=== PATIENT | female | born 1970 | race Caucasian/White ===

== ENCOUNTER 2016-07-06 08:39 | Day surgery (SDC) | payer OTHER ==
[2016-07-02 11:21] VITALS: BMI 21.3
--- NOTE | 2016-07-05 15:56 | HP ---
DATE OF ADMISSION: CHIEF COMPLAINT: Left shoulder pain and stiffness. 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 She does not recall any specific injury. It is bothering her with overhead use and at night. She has been taking Advil as needed. PAST MEDICAL HISTORY: Negative. PAST SURGICAL HISTORY: Negative. CURRENT MEDICATIONS: Ibuprofen. She denies drug allergies. FAMILY HISTORY: Significant for cancer. SOCIAL HISTORY: Significant for previous tobacco use; however, she quit in 2005. On examination, the patient is approximately 5 foot 6, 135 pounds of mesomorphic habitus. HEENT exam is nonfocal. Neck is supple. Active motion of the left shoulder, forward elevation 90 degrees, external rotation with arm at the side 10 degrees, internal rotation to the buttock. Passively I am able to forward elevate her to 90 degrees. Motor strength is 4+/5 for abduction and external rotation. Impingement and Neer test are positive. Her distal neurovascular exam otherwise appears be intact in the left upper extremity. MRI report from 06/25/2016 of the left shoulder shows rotator cuff is intact. IMPRESSION: Left shoulder adhesive capsulitis, symptomatic. RECOMMENDATIONS: I talked to the patient at length regarding her treatment options. At this point, she is quite limited because of stiffness and pain. She opted to proceed with manipulation under anesthesia with a subacromial cortisone injection. Risks and benefits are discussed at length in layman's terms. We will likely perform that as an outpatient procedure.
[~2016-07-06 08:39] MED LIST: CLINDAMYCIN 900 MG in DEXTROSE 5% IN WATER 50 ML IVPB ONE; LACTATED RINGERS 1,000 ML IV SCH
[2016-07-06 09:12] VITALS: TEMP 98.4
[2016-07-06] MEDS ORDERED: LIDOCAINE 1% 20 ML VIAL (10MG/ML) FOR IV START INTRADERMA ONE (09:25)
[2016-07-06] MEDS ORDERED: LIDOCAINE 1% 20 ML VIAL (10MG/ML) FOR IV START INTRADERMA PRN (09:26)
[2016-07-06] MEDS ORDERED: SCOPOLAMINE 1.5MG/72HR PATCH TRANSDERM ONE (09:26)
[2016-07-06] MEDS ORDERED: DEXAMETHASONE SOD PHOSPHATE 10 MG/ML 1 ML VIAL IV ONE (09:26)
[2016-07-06] MEDS ORDERED: ONDANSETRON 4 MG/2 ML VIAL IVP ONE (09:26)
[2016-07-06] MEDS ORDERED: LACTATED RINGERS 1,000 ML IV SCH (09:30)
[2016-07-06] MEDS ORDERED: KETOROLAC 30 MG/ML 1 ML VIAL ONE (10:31)
[2016-07-06] MEDS ORDERED: PROPOFOL 10 MG/ML 20 ML VIAL IV ONE (10:31)
[2016-07-06] MEDS: HYDROmorphone 1 MG/ML 1 ML SYRINGE IVP ONE ×4 (10:40→10:55)
[2016-07-06] MEDS: MIDAZOLAM 2 MG/2 ML VIAL IVP ONE ×2 (10:50→10:56)
--- NOTE | 2016-07-06 10:54 | P.OP ---
Date of Procedure: 07/06/16 Preoperative Diagnosis: Left shoulder adhesive capsulitis Postoperative Diagnosis: Same Procedure(s) Performed: Manipulation under anesthesia left shoulder with subacromial cortisone injection Anesthesia: MAC Surgeon: Yury Huber Estimated Blood Loss (ml): 0 Pathology: none sent Condition: stable Disposition: PACU Indications for Procedure: The patient's a 45-year-old female who presents with progressive left shoulder pain and stiffness secondary to adhesive capsulitis despite conservative measures. A discussion of the risks and benefits of manipulation under anesthesia along with a subacromial cortisone injection was made with patient. She opted to proceed. Specific risks of this procedure to include fracture, dislocation, tendon rupture, possible recurrence of stiffness and need for subsequent procedures was discussed. Informed consent was obtained. Operative Findings: Significant adhesions Description of Procedure: The patient was brought to the recovery room, and after induction of IV sedation I then gently manipulated her left shoulder. Initially with her arm at her side obtained 70 of external rotation after encountering moderate adhesions. I then obtained full forward elevation again encountering moderate adhesions. I felt that I had adequate release at this point. The posterior shoulder was then prepared with ChloraPrep. 80 mg of Depo-Medrol along with 5 mL of quarter percent plain Marcaine was injected the left shoulder posterior subacromial space. She was then monitored until fully awake. No complications were incurred. There was no blood loss.
[2016-07-06] MEDS ORDERED: HYDROcodone/APAP 5-325MG 1 EACH TAB PO ONE (11:44)
[2016-07-06 11:46] VITALS: RESP 16
[2016-07-06 12:37] VITALS: BP 110/69; PULSE 88
== END 2016-07-06 12:40 | disposition home or self-care (01) ==
LOC: OR 08:39
PROVIDERS: ATTEND Orthopaedic Surgery
DX: M75.02 Adhesive capsulitis of left shoulder (principal); Z87.891 Personal history of nicotine dependence; Z88.0 Allergy status to penicillin
CPT/HCPCS: 23700; 20610; J2250; J1100; J2405; J1885; J1170; J2704

== ENCOUNTER → 2016-08-20 | Outpatient (CLI) | payer OTHER ==
[2016-08-20 21:04] LABS: ALT 30 U/L (9-52); AST 23 U/L (14-36); Alkaline Phosphatase 73 U/L (38-126); Anion Gap 12 mmol/L; Blood Urea Nitrogen 13 mg/dL (7-17); Carbon Dioxide 29 mmol/L (22-30); Chloride 102 mmol/L (98-107); Cholesterol 129 mg/dL (<200); Glucose 77 mg/dL (74-99); HDL Cholesterol 86 mg/dL (40-60); Non-African American GFR(MDRD) >60 (>60 ml/min/1.73 sqM); Sodium 143 mmol/L (137-145); Total Bilirubin 0.6 mg/dL (0.2-1.3); Total Protein 7.5 g/dL (6.3-8.2); Triglycerides 35 mg/dL (<150)
[2016-08-20 21:05] LABS: Basophils % (A) 1 %; CH 32.1; Eosinophils % (A) 1 %; HCT 42.7 % (34.0-46.0); HDW 2.66; HGB 14.2 gm/dL (11.4-16.0); Luc # (Auto) 0.08; Luc % (Auto) 2; Lymphocytes # (A) 1.2 k/uL (1.0-4.8); Lymphocytes % (A) 32 %; MCH 31.4 pg (25.0-35.0); MCHC 33.2 g/dL (31.0-37.0); MCV 94.7 fL (80.0-100.0); Monocytes # (A) 0.3 k/uL (0-1.0); Monocytes % (A) 7 %; Neutrophils # (A) 2.2 k/uL (1.3-7.7); Neutrophils % (A) 58 %; RBC 4.51 m/uL (3.80-5.40); RDW 12.7 % (11.5-15.5); WBC 3.8 k/uL (3.8-10.6); WBC (Perox) 4.08
== END ==
LOC: MMGSC 09:51
PROVIDERS: ATTEND Family Medicine
DX: Z00.00 Encounter for general adult medical examination without abnormal findings (principal)
CPT/HCPCS: 36415; 80053; 80061; 84439; 84443; 85025

== ENCOUNTER → 2017-02-18 | Outpatient (CLI) | payer SELFPAY ==
--- NOTE | 2017-02-18 11:47 | ECHOF ---
Referral Reason:R07.89 chest pain MEASUREMENTS -------- HEIGHT: 167.6 cm WEIGHT: 58.5 kg BP: 119/69 RVIDd: 2.6 cm (< 3.3) IVSd: 0.9 cm (0.6 - 1.1) LVIDd: 3.5 cm (3.9 - 5.3) LVPWd: 1.0 cm (0.6 - 1.1) IVSs: 1.3 cm LVIDs: 2.8 cm LVPWs: 1.2 cm LAESV Index (A-L): 12.94 ml/m Ao Diam: 2.6 cm (2.0 - 3.7) AV Cusp: 2.1 cm (1.5 - 2.6) MV EXCURSION: 18.482 mm (> 18.000) MV EF SLOPE: 82 mm/s (70 - 150) EPSS: 0.7 cm MV E Luis: 0.82 m/s MV DecT: 191 ms MV A Luis: 0.65 m/s MV E/A Ratio: 1.27 FINDINGS -------- Sinus rhythm. This was a technically good study. The left ventricular size is normal. Left ventricular wall thickness is normal. Overall left ventricular systolic function is normal with, an EF between 55 - 60 %. The right ventricle is normal in size. Normal LA size by volume 22+/-6 ml/m2. The right atrium is normal in size. The aortic valve is trileaflet and appears structurally normal. There is trace mitral regurgitation. The tricuspid valve appears structurally normal. Trace/mild (physiologic) pulmonic regurgitation. The aortic root size is normal. Normal inferior vena cava with normal inspiratory collapse consistent with estimated right atrial pressure of 5 mmHg. There is no pericardial effusion. CONCLUSIONS -------- 1. Sinus rhythm. 2. There is trace mitral regurgitation. 3. The tricuspid valve appears structurally normal. 4. Trace/mild (physiologic) pulmonic regurgitation. 5. The aortic root size is normal. 6. Normal inferior vena cava with normal inspiratory collapse consistent with estimated right atrial pressure of 5 mmHg. 7. There is no pericardial effusion. 8. This was a technically good study. 9. The left ventricular size is normal. 10. Left ventricular wall thickness is normal. 11. Overall left ventricular systolic function is normal with, an EF between 55 - 60 %. 12. The right ventricle is normal in size. 13. Normal LA size by volume 22+/-6 ml/m2. 14. The right atrium is normal in size. 15. The aortic valve is trileaflet and appears structurally normal. EMBOSSER OPERATOR: Jocelyn Lopez RDCS
--- NOTE | 2017-02-18 13:46 | EST ---
EXERCISE STRESS DATE OF SERVICE: 02/18/2017 AGE: 46 SEX: Female HT: 66 WT: 129 PROTOCOL: Jose STAGE: III DURATION OF EXERCISE: 8 minutes HEART RATE REST: 90 BLOOD PRESSURE REST: 129/73 MAXIMUM HEART RATE ACHIEVED: 168 MAXIMUM BLOOD PRESSURE: 134/65 85% MPHR: 149 100% MPHR: 175 METS: 9.7 INDICATIONS: Chest pain. Baseline EKG revealed normal sinus rhythm without significant ST-T changes. Patient walked on standard Jose protocol for 8 minutes, achieved a maximum heart rate of 168 beats per minute, well above 85% of predicted maximal. She developed fatigue and shortness of breath, but did not have any angina or arrhythmia. EKG did not reveal any ST-segment changes to indicate ischemia. FINAL IMPRESSION: Fair exercise capacity with a negative stress test by EKG criteria. MMODL / IJN: [id number] /
== END | disposition home or self-care (01) ==
LOC: RADECHMAIN 08:18
PROVIDERS: ATTEND Family Medicine
DX: I34.0 Nonrheumatic mitral (valve) insufficiency (principal); R07.89 Other chest pain
CPT/HCPCS: 93017; 93306

== ENCOUNTER → 2018-01-20 | Outpatient (CLI) | payer MEDICAID ==
--- NOTE | 2018-01-20 13:52 | US ---
EXAMINATION TYPE: US kidneys/renal and bladder DATE OF EXAM: 01/20/2018 COMPARISON: NONE CLINICAL HISTORY: R31.9 HEMATURIA; Patient stated microscopic hematuria EXAM MEASUREMENTS: Right Kidney: 10.3 x 5.2 x 4.3 cm Left Kidney: 10.8 x 5.4 x 5.8 cm Post Void Residual Volume: 2.8 mL Incidental finding is noted of single, shadowing gallstone in gallbladder. Right Kidney: prominent renal pelvis noted post void at 1.1cm A/P however there is no evidence of hyd ronephrosis. Left Kidney: No hydronephrosis or masses seen Bladder: wnl Bilateral Jets seen: Yes Normal Post Void Residual: Yes No nephrolithiasis is seen. The urinary bladder is anechoic. Bilateral ureteral jets are seen. IMPRESSION: 1. No hydronephrosis or nephrolithiasis bilaterally. 2. Incidentally noted cholelithiasis.
== END | disposition home or self-care (01) ==
LOC: RADUSWWP 12:41
PROVIDERS: ATTEND Family Medicine
DX: K80.20 Calculus of gallbladder without cholecystitis without obstruction (principal)
CPT/HCPCS: 76770

== ENCOUNTER → 2018-03-06 | Outpatient (CLI) | payer MEDICAID ==
--- NOTE | 2018-03-08 11:11 | MM ---
Reason for exam: screening (asymptomatic). Last mammogram was performed 1 year and 6 months ago. History: Patient is postmenopausal and has history of other cancer at age 26. Cyst aspiration of the left breast. Physical Findings: A clinical breast exam by your physician is recommended on an annual basis and results should be correlated with mammographic findings. MG 3D Screening Mammo W/Cad Bilateral CC and MLO view(s) were taken. Prior study comparison: August 30, 2016, mammogram, performed at [facility]. October 02, 2013, mammogram, performed at [facility]. The breast tissue is heterogeneously dense. This may lower the sensitivity of mammography. No significant changes when compared with prior studies. ASSESSMENT: Negative, BI-RAD 1 RECOMMENDATION: Routine screening mammogram of both breasts in 1 year.
== END | disposition home or self-care (01) ==
LOC: RADMAMWWP 16:43
PROVIDERS: ATTEND Family Medicine
DX: Z12.31 Encounter for screening mammogram for malignant neoplasm of breast (principal)
CPT/HCPCS: 77063; 77067

== ENCOUNTER → 2021-06-11 | Outpatient (CLI) | payer MEDICAID ==
--- NOTE | 2021-06-11 14:09 | MM ---
Reason for exam: screening (asymptomatic). Last mammogram was performed 3 years and 3 months ago. History: Patient is postmenopausal and has history of other cancer at age 26. Cyst aspiration of the left breast. Physical Findings: A clinical breast exam by your physician is recommended on an annual basis and results should be correlated with mammographic findings. MG 3D Screening Mammo W/Cad Bilateral CC and MLO view(s) were taken. Prior study comparison: March 06, 2018, bilateral MG 3d screening mammo w/cad. August 30, 2016, mammogram, performed at [facility]. The breast tissue is heterogeneously dense. This may lower the sensitivity of mammography. There are benign appearing dystrophic calcifications bilaterally. There is chronic nodularity in the left breast at focal calcification centrally. There is no discrete abnormality. ASSESSMENT: Benign, BI-RAD 2 RECOMMENDATION: Routine screening mammogram of both breasts in 1 year.
== END | disposition home or self-care (01) ==
LOC: RADMAMWWP 07:17
PROVIDERS: ATTEND Family Medicine
DX: Z12.31 Encounter for screening mammogram for malignant neoplasm of breast (principal); Z78.0 Asymptomatic menopausal state
CPT/HCPCS: 77063; 77067

== ENCOUNTER 2021-11-13 08:33 | Day surgery (SDC) | payer MEDICAID ==
[2021-11-12 10:38] VITALS: BMI 21.6
[~2021-11-13 08:33] MED LIST changes: -CLINDAMYCIN 900 MG in DEXTROSE 5% IN WATER 50 ML IVPB ONE; +LIDOCAINE 1% (10MG/ML) FOR IV START INTRADERMA PRN
[2021-11-13 08:49] VITALS: RESP 16; TEMP 97.4
[2021-11-13] MEDS: LACTATED RINGERS 1,000 ML IV ONE ×2 (08:59→09:25)
[2021-11-13] MEDS ORDERED: LACTATED RINGERS 1,000 ML IV ONE (08:59)
[2021-11-13] MEDS ORDERED: LIDOCAINE 2% INJ 20 MG/ML (2 ML VIAL) ONE (09:24)
[2021-11-13] MEDS ORDERED: PROPOFOL 10 MG/ML 20 ML VIAL IV ONE (09:24)
--- NOTE | 2021-11-13 09:50 | P.PCN ---
Date of Procedure: 11/13/21 Procedure(s) Performed: BRIEF HISTORY: Patient is a 51-year-old pleasant white female scheduled for an elective colonoscopy as a part of screening for colorectal neoplasia. PROCEDURE PERFORMED: Colonoscopy with snare polypectomy. PREOPERATIVE DIAGNOSIS: screening for colon cancer. IV sedation per Anesthesia. PROCEDURE: After informed consent was obtained, the patient, was brought into the endoscopy unit. IV sedation was administered by Anesthesia under continuous monitoring. Digital rectal examination was normal. Initially the Olympus CF-160 flexible video colonoscope was then inserted in the rectum, gradually advanced into the cecum without any difficulty. Careful examination was performed as the scope was gradually being withdrawn. Ileocecal valve and the appendiceal orifice were visualized and appeared normal. Prep was poor and several areas of the colon. Mucosa of the cecum, ascending colon, transverse colon appeared normal. In the descending colon there was a 5 mm polyp that was removed by snare polypectomy. Rest of the , descending colon, sigmoid colon, and rectum appeared normal. Retroflexion was performed in the rectum and no lesions were seen. The patient tolerated the procedure well. IMPRESSION: 5 mm descending colon polyp status post polypectomy Poor prep in several areas of the colon precluding adequate visualization RECOMMENDATIONS: Findings of this examination were discussed with the patient as well as a family. She was advised to have a repeat colonoscopy in 5 years from now.
[2021-11-13 10:17] VITALS: BP 140/68; PULSE 86
== END 2021-11-13 10:45 | disposition home or self-care (01) ==
LOC: ORWHC2ENDO 08:33
PROVIDERS: ATTEND Internal Medicine Gastroenterology
DX: Z12.11 Encounter for screening for malignant neoplasm of colon (principal); D12.4 Benign neoplasm of descending colon; Z87.891 Personal history of nicotine dependence; Z79.899 Other long term (current) drug therapy; Z88.0 Allergy status to penicillin; Z97.2 Presence of dental prosthetic device (complete) (partial)
CPT/HCPCS: 88305; 45385; J2704; J2001

== ENCOUNTER → 2022-10-20 | Outpatient (CLI) | payer MEDICAID ==
--- NOTE | 2022-10-20 08:54 | USB ---
Reason for Exam: Clinical finding. Patient History: Menarche at age 14. First Full-Term at age 18. Hysterectomy at age 26. Postmenopausal. Cyst Aspiration on the Left side. Risk Values: Maeve 5 year model risk: 0.7%. NCI Lifetime model risk: 6.4%. Technique: Method: Whole Breast Handheld. Prior Study Comparison: 08/30/2016 Screening Mammogram, [facility]. 03/06/2018 Bilateral Screening Mammogram, [facility]. 06/11/2021 Bilateral Screening Mammogram, [facility]. Findings: The whole breast of the right breast, the axilla of the right breast and the retroareolar of the right breast were scanned. Imaged: Ultrasound imaging of: All 4 quadrants, the retroareolar region and axilla. * Ultrasound imaging and area of palpable abnormality demonstrates cystic structure with internal solid component measuring 15 x 8 x 14 mm. This is located at 7:00 approximately 1 cm from the nipple. * Additional irregular shaped mixed echogenicity lesion at 10:00 3 cm from the nipple nipple measuring 7 x 7 x 4 mm. Overall Assessment: Suspicious, BI-RAD 4 Management: Ultrasound Core Biopsy of the right breast. Ultrasound-guided biopsies of both the 10:00 and 7:00 lesions. A clinical breast exam by your physician is recommended on an annual basis and results should be correlated with mammographic findings. This exam should not preclude additional follow-up of suspicious palpable abnormalities. Results were given to the patient verbally at the time of exam. Electronically signed and approved by: Paul Maxwell DO
--- NOTE | 2022-10-20 08:55 | MM ---
Reason for Exam: Clinical finding. Last mammogram was performed 1 year(s) and 4 month(s) ago. Indicated Problems: Palpable abnormality of the right side for 3 Week(s). Patient History: Menarche at age 14. First Full-Term at age 18. Hysterectomy at age 26. Postmenopausal. Cyst Aspiration on the Left side. Risk Values: Maeve 5 year model risk: 0.7%. NCI Lifetime model risk: 6.4%. Prior Study Comparison: 10/02/2013 Screening Mammogram, [facility]. 08/30/2016 Screening Mammogram, [facility]. 03/06/2018 Bilateral Screening Mammogram, [facility]. 06/11/2021 Bilateral Screening Mammogram, [facility]. Tissue Density: The breast tissue is heterogeneously dense. This may lower the sensitivity of mammography. Findings: Analyzed By CAD. * Palpable marker correlates with lesion measuring 13 x 12 mm approximately 3.0 cm from the nipple on right CC view on MLO view/well appreciated but may be slightly inferior up to 1.0 cm from the nipple. * Left breast does not demonstrate cyst mass or calcification. There is benign-appearing calcification in the left breast. Overall Assessment: Incomplete: need additional imaging evaluation, BI-RAD 0 Management: Diagnostic Breast Ultrasound of the right breast. Results were given to the patient verbally at the time of exam. Patient should continue monthly self-breast exams. A clinical breast exam by your physician is recommended on an annual basis. This exam should not preclude additional follow-up of suspicious palpable abnormalities. Note on Maeve scores and lifetime risk: 1. A Maeve score greater than 3% is considered moderate risk. If this is the case, consider specialist referral to assess eligibility for a risk reducing agent. 2. If overall lifetime risk for the development of breast cancer is 20% or higher, the patient may qualify for future screening with alternating mammogram and breast MRI. Electronically signed and approved by: Paul Maxwell DO
== END | disposition home or self-care (01) ==
LOC: RADMAMWWP 07:05
PROVIDERS: ATTEND Family Medicine
DX: N63.10 Unspecified lump in the right breast, unspecified quadrant (principal); Z78.0 Asymptomatic menopausal state
CPT/HCPCS: 77062; 77066

== ENCOUNTER → 2022-11-03 | Day surgery (SDC) | payer MEDICAID ==
--- NOTE | 2022-11-08 12:08 | MM ---
Reason for Exam: Post Procedure Mammogram. Last screening mammogram was performed less than 1 month ago. Patient History: Menarche at age 14. First Full-Term at age 18. Hysterectomy at age 26. Postmenopausal. Cyst Aspiration on the Left side. Risk Values: Maeve 5 year model risk: 0.7%. NCI Lifetime model risk: 6.4%. Prior Study Comparison: 03/06/2018 Bilateral Screening Mammogram, [facility]. 06/11/2021 Bilateral Screening Mammogram, [facility]. 10/20/2022 Bilateral MG 3D diag mammo w/cad [place], [facility]. Tissue Density: Right: The breast tissue is heterogeneously dense. This may lower the sensitivity of mammography. Pathology Description: Location: 7 o'clock, lower outer quadrant, anterior. Marker Left Behind. Needle Type: Mammotome Cores: 8 Gauge: 13 The procedure of ultrasound guided core biopsy was explained to the patient. Benefits, alternatives, and risks were discussed. An informed consent was then obtained. Initial scanning redemonstrates a 1.5 cm cystic lesion at the 7:00 palpable site. Mural based echogenicity could represent clumps of debris. This is targeted for aspiration and biopsy. Additional scanning at the 10:00 position was unable to reproduce any discrete abnormality. The patient was placed in supine positioning for imaging and for the procedure. The overlying skin was prepped and draped in usual sterile fashion. Lidocaine was used as anesthetic into the skin and subcutaneous tissue up to area of concern in the right breast. Under ultrasound guidance, initial attempt at aspiration with an 18-gauge spinal needle was unsuccessful. Under ultrasound guidance, a 13-gauge vacuum-assisted mammotome biopsy gun was advanced through the lesion. The lesion collapsed. A total of 8 core specimens were obtained of the residual cystic lesion and surrounding tissue. Following this, a HydroMark coil clip was left at the site of biopsy. The patient tolerated the procedure well without any immediate complication. The patient was kept in the radiology department for short stay after the procedure and then discharged home in stable condition. Postprocedure mammogram: The patient was transferred to mammography for physician ordered post procedure mammogram for clip placement verification. Post procedure mammogram shows the clip at the 6:00 position previously palpable site. IMPRESSION: Successful, uncomplicated ultrasound guided core biopsy of the palpable cyst at the 6:00 right breast after initial unsuccessful attempt at aspiration. Probably due to very thickened internal debris. Full pathology results to follow. Pathology Results: Result: Benign, Fibroadenomatoid hyperplasia. BREAST TISSUE, RIGHT AT SEVEN O'CLOCK POSITION, CORE BIOPSY: Fibroadenomatoid stromal hyperplasia with fibrocystic change having apocrine metaplasia and focal usual ductal hyperplasia (see comment). Current specimen negative for diagnostic in situ or invasive carcinoma. Notes It is noted there is imaging evidence of a cystic structure measuring 15 mm located at approximately the seven o'clock position within the right breast. Clinical correlation with imaging studies is suggested, as indicated. Overall Assessment: Benign Assessment: MG diagnostic mammo RT wo CAD - Right: Benign, BI-RAD 2. Management: Diagnostic Breast Ultrasound of the right breast in 6 months. Electronically signed and approved by: Piper Perez M.D. Radiologist
== END ==
LOC: RADUSWWP 09:49
PROVIDERS: ATTEND Surgery
DX: N62 Hypertrophy of breast (principal); N60.81 Other benign mammary dysplasias of right breast
CPT/HCPCS: 88305; 77065; 19083; 19084; A4648

== ENCOUNTER → 2022-11-12 | Outpatient (CLI) | payer MEDICAID ==
[2022-11-12 11:09] VITALS: BP 125/71; PULSE 82; RESP 18; TEMP 98.1
--- NOTE | 2022-11-12 11:26 | P.GSHP ---
History of Present Illness H&P Date: 11/12/22 Chief Complaint: fibrocystic breast changes Meka is a 52 year old whtie female seen in consultation for Dr. Gonzalez Cleary regarding a biopsy of the right breast. She had a bilateral mammogram on 10-20-22. This led to a right breast ultrasound. This showed two areas in the right breast, one at a palpable spot at 7 oclock and one at 10:00. Ultrasound biopsy recommended for both. An attempt at ultrasound biopsy of both was done on 11-03-22. The lesion at 7 was smapled the lesion at 10 could not be reproduced. 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 Following the aspiration the patient continues to feel a palpable area which is believed to be related to the biopsy itself. It is black and blue. It is painful but is getting better. Axillary 10 years ago she had an aspiration on the left side which was benign. She has not had any surgery on either breast. She gets her mammograms annually. She is not complaining of any trauma or infection in the breast. Patient has a personal history of cervical cancer at age 26, she was treated with hysterectomy. Caffeine: 1 1/2 pots of coffee/day nicotine: none chocolate: occasional BCP: 2 months in her to's hormones: estrovan over the counter 5 days ago Family History: mother: lung cancer smoker patient cervical cancer at 26 Hormonal History: menarche: 14 M2, breast fed: no, age at first 18 menopause: hysterectomy at 26, left ovaries Surgical History: Hysterectomy Medical history: Negative Social history: Nicotine: Negative Alcohol: Occasional Drugs: Negative ] - Constitutional Constitutional: Reports sweats - EENT Eyes: denies blurred vision, denies pain Ears: deny: decreased hearing, tinnitus Ears, nose, mouth and throat: Denies headache, Denies sore throat - Breasts Breasts: bilateral: as per HPI - Cardiovascular Cardiovascular: Denies chest pain, Denies shortness of breath - Respiratory Comment: asthma Respiratory: Denies cough, Denies 7 - Gastrointestinal Gastrointestinal: Denies abdominal pain, Denies diarrhea, Denies nausea, Denies vomiting - Genitourinary (Female) Genitourinary: Denies dysuria, Denies hematuria - Menstruation Menstruation: Reports post hysterectomy - Musculoskeletal Musculoskeletal: Denies myalgias - Integumentary Integumentary: Denies pruritus, Denies rash - Neurological Neurological: Denies numbness, Denies weakness - Psychiatric Psychiatric: Denies anxiety, Denies depression - Endocrine Endocrine: Denies fatigue, Denies weight change - Hematologic/Lymphatic Comment: none - Allergic/Immunologic Allergic/Immunologic: Reports as per HPI Past Medical History Past Medical History: Asthma, Cancer Additional Past Medical History / Comment(s): Cervical cancer, gallstone, History of Any Multi-Drug Resistant Organisms: None Reported Past Surgical History: Hysterectomy Past Anesthesia/Blood Transfusion Reactions: Motion Sickness Past Psychological History: No Psychological Hx Reported Smoking Status: Former smoker Past Alcohol Use History: Rare Additional Past Alcohol Use History / Comment(s): Smoked 1 PPD for 15 yrs, quit 20 yrs ago. Past Drug Use History: None Reported - Past Family History Mother Family Medical History: Cancer Additional Family Medical History / Comment(s): lung Medications and Allergies Home Medications Medication Instructions Recorded Confirmed Type Montelukast Sodium [Singulair] 10 mg PO HS 11/12/21 11/12/22 History Mv-Mn/FA/Bl Coh/Isoflav/Jujube 1 tablet PO DAILY 11/12/22 11/12/22 History [Estroven Menopause Caplet] Allergies Allergy/AdvReac Type Severity Reaction Status Date / Time Penicillins Allergy Unknown Verified 11/12/22 10:56 Childhood Surgical - Exam Vital Signs Temp Pulse Resp BP Pulse Ox 98.1 F 82 18 125/71 98 11/12/22 11:06 11/12/22 11:06 11/12/22 11:06 11/12/22 11:06 11/12/22 11:06 - General no distress - Eyes normal ocular movement - ENT no hearing loss - Neck trachea midline - Respiratory normal respiratory effort, clear to auscultation - Cardiovascular Rhythm: regular Heart Sounds: normal: S1, S2 - Abdomen Abdomen: soft, non tender, no guarding, no rigid, no rebound - Integumentary normal turgor - Neurologic no disoriented, no combative - Musculoskeletal normal gait, normal posture - Psychiatric oriented to time, oriented to person, oriented to place, speech is normal, memory intact Breast Exam: BRA: 34B Inspection: bilateral grade 2 ptosis Palpation: right breast: Ecchymosis related to recent core biopsy, hematoma at the biopsy site, no other masses or nodules of concern on multi-positional exam Right axilla: No adenopathy of concern Left breast: Multiple positional exam no dominant masses or nodules of concern, fibrocystic changes Left axilla: No adenopathy of concern Results Mammogram and ultrasound personally reviewed Assessment and Plan Assessment: Impression: Fibrocystic breast changes Ecchymosis and hematoma after recent right breast ultrasound core biopsy 10:00 lesion in the right breast not seen for for biopsy, lesion that was biop sied was at 7:00 Prior palpable change is at the area of the now present hematoma Plan: Right breast ultrasound in 6 months with physician exam at that time Patient to follow up sooner any questions or concerns CC: Dr. Noel
== END ==
LOC: WWCWWP 10:47
PROVIDERS: ATTEND Surgery
DX: N60.11 Diffuse cystic mastopathy of right breast (principal); J45.909 Unspecified asthma, uncomplicated; Z80.1 Family history of malignant neoplasm of trachea, bronchus and lung; Z85.41 Personal history of malignant neoplasm of cervix uteri; Z87.891 Personal history of nicotine dependence; Z88.0 Allergy status to penicillin; Z90.710 Acquired absence of both cervix and uterus

== ENCOUNTER → 2023-06-15 | Outpatient (CLI) | payer MEDICAID ==
--- NOTE | 2023-06-15 15:35 | USB ---
Reason for Exam: Follow-up at short interval from prior study. Patient History: Menarche at age 14. First Full-Term at age 18. Hysterectomy at age 26. Postmenopausal. Previous Hyperplasia w/o Atypia at age 52. 11/03/2022, Benign US biopsy breast VAD RT on the right side. Cyst Aspiration on the Left side. Risk Values: Maeve 5 year model risk: 0.9%. NCI Lifetime model risk: 7.5%. Technique: Method: Targeted. Prior Study Comparison: 06/11/2021 Bilateral Screening Mammogram, [facility]. 10/20/2022 Bilateral MG 3D diag mammo w/cad [facility], [facility]. 11/03/2022 Right MG diagnostic mammo RT wo CAD, [facility]. Findings: The lateral section of the breast of the right breast was scanned. There is a clip within a small 0.8 x 0.4 cm density 1 cm from the nipple 7:00 position. This is smaller than the comparison.. Overall Assessment: Benign, BI-RAD 2 Management: Screening Mammogram of both breasts in 4 months. A clinical breast exam by your physician is recommended on an annual basis and results should be correlated with mammographic findings. This exam should not preclude additional follow-up of suspicious palpable abnormalities. Results were given to the patient verbally at the time of exam. Electronically signed and approved by: Andrez Thompson D.O. Radiologis
== END | disposition home or self-care (01) ==
LOC: RADUSWWP 14:53
PROVIDERS: ATTEND Surgery
DX: R92.8 Other abnormal and inconclusive findings on diagnostic imaging of breast (principal); Z78.0 Asymptomatic menopausal state

== ENCOUNTER → 2023-06-23 | Outpatient (CLI) | payer MEDICAID ==
[2023-06-23 10:31] VITALS: BP 118/74; PULSE 79; RESP 18; TEMP 98
--- NOTE | 2023-06-23 11:02 | P.PN ---
Subjective Progress Note Date: 06/23/23 Principal diagnosis: fibrocystic breast changes fibrocystic breast changes Meka is a 52 year old white female seen in consultation for Dr. Gonzalez Cleary regarding a biopsy of the right breast. She had a bilateral mammogram on 10-20-22. This led to a right breast ultrasound. This showed two areas in the right breast, one at a palpable spot at 7 oclock and one at 10:00. Ultrasound biopsy recommended for both. An attempt at ultrasound biopsy of both was done on 11-03-22. The lesion at 7 was sampled the lesion at 10 could not be reproduced. 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 About 10 years ago she had an aspiration on the left side which was benign. She has not had any surgery on either breast. She gets her mammograms annually. She is not complaining of any trauma or infection in the breast. ultrasound repeated of the right breast on 06-15-23 BIRAD 2 She does not complain of any new lumps masses or nodules of concern in either breast. She has had a 15 pound weight loss intentional and noticed some changes in her breast related to this. Patient has a personal history of cervical cancer at age 26, she was treated with hysterectomy. Caffeine: 1 1/2 pots of coffee/day nicotine: none chocolate: occasional BCP: 2 months in her to's hormones: estrovan over the counter 5 days ago Family History: mother: lung cancer smoker patient cervical cancer at 26 Hormonal History: menarche: 14 M2, breast fed: no, age at first 18 menopause: hysterectomy at 26, left ovaries Surgical History: Hysterectomy Medical history: Negative Social history: Nicotine: Negative Alcohol: Occasional Drugs: Negative ] - Constitutional Constitutional: Reports sweats - EENT Eyes: denies blurred vision, denies pain Ears: deny: decreased hearing, tinnitus Ears, nose, mouth and throat: Denies headache, Denies sore throat - Breasts Breasts: bilateral: as per HPI - Cardiovascular Cardiovascular: Denies chest pain, Denies shortness of breath - Respiratory Comment: asthma Respiratory: Denies cough - Gastrointestinal Gastrointestinal: Denies abdominal pain, Denies diarrhea, Denies nausea, Denies vomiting - Genitourinary (Female) Genitourinary: Denies dysuria, Denies hematuria - Menstruation Menstruation: Reports post hysterectomy - Musculoskeletal Musculoskeletal: Denies myalgias - Integumentary Integumentary: Denies pruritus, Denies rash - Neurological Neurological: Denies numbness, Denies weakness - Psychiatric Psychiatric: Denies anxiety, Denies depression - Endocrine Endocrine: Denies fatigue, Denies weight change - Hematologic/Lymphatic Comment: none - Allergic/Immunologic Allergic/Immunologic: Reports as per HPI Past Medical History Past Medical History: Asthma, Cancer Additional Past Medical History / Comment(s): Cervical cancer, gallstone, History of Any Multi-Drug Resistant Organisms: None Reported Past Surgical History: Hysterectomy Past Anesthesia/Blood Transfusion Reactions: Motion Sickness Past Psychological History: No Psychological Hx Reported Smoking Status: Former smoker Past Alcohol Use History: Rare Additional Past Alcohol Use History / Comment(s): Smoked 1 PPD for 15 yrs, quit 20 yrs ago. Past Drug Use History: None Reported - Past Family History Mother Family Medical History: Cancer Additional Family Medical History / Comment(s): lung Medications and Allergies Home Medications Medication Instructions Recorded Confirmed Type Montelukast Sodium [Singulair] 10 mg PO HS 11/12/21 11/12/22 History Mv-Mn/FA/Bl Coh/Isoflav/Jujube 1 tablet PO DAILY 11/12/22 11/12/22 History [Estroven Menopause Caplet] Allergies Allergy/AdvReac Type Severity Reaction Status Date / Time Penicillins Allergy Unknown Verified 11/12/22 10:56 Childhood Objective - Vital Signs Vital signs: Vital Signs Temp 98 F 06/23/23 10:20 Pulse 79 06/23/23 10:20 Resp 18 06/23/23 10:20 BP 118/74 06/23/23 10:20 Pulse Ox 97 06/23/23 10:20 FiO2 Intake & Output 06/22/23 06/23/23 06/23/23 18:59 06:59 18:59 Weight 56.699 kg - Constitutional General appearance: Present: cooperative - EENT Eyes: Present: EOMI ENT: Present: hearing grossly normal - Neck Neck: Present: normal ROM - Respiratory Respiratory: bilateral: CTA - Cardiovascular Heart sounds: normal: S1, S2 - Integumentary Integumentary: Present: normal turgor - Psychiatric Psychiatric: Present: A&O x's 3, appropriate affect, intact judgment & insight - Additional findings Additional findings: Breast Exam: BRA: 34B Inspection: bilateral grade 2 ptosis Palpation: right breast: no dominate masses or nodules of concern Right axilla: No adenopathy of concern Left breast: Multiple positional exam no dominant masses or nodules of concern, fibrocystic changes Left axilla: No adenopathy of concern Assessment and Plan Assessment: Impression: Fibrocystic breast changes 10:00 lesion in the right breast not seen for for biopsy, lesion that was biopsied was at 7:00 ultrsaound 1-10-24 BIRAD 2 repeat bilateral mammogram in 4 months Plan: bilateral mammogram in 4 months with exam at that time CC: Dr. Noel
== END ==
LOC: WWCWWP 10:06
PROVIDERS: ATTEND Surgery
DX: N60.11 Diffuse cystic mastopathy of right breast (principal); C80.1 Malignant (primary) neoplasm, unspecified; J45.909 Unspecified asthma, uncomplicated; Z88.0 Allergy status to penicillin; Z90.710 Acquired absence of both cervix and uterus; Z87.891 Personal history of nicotine dependence; Z85.41 Personal history of malignant neoplasm of cervix uteri

== ENCOUNTER → 2023-10-24 | Outpatient (CLI) | payer MEDICAID ==
--- NOTE | 2023-10-28 09:32 | MM ---
Reason for Exam: Screening (asymptomatic). Last screening mammogram was performed 12 month(s) ago. Patient History: Menarche at age 14. First Full-Term at age 18. Hysterectomy at age 26. Postmenopausal. Previous Hyperplasia w/o Atypia at age 52. 11/03/2022, Benign US biopsy breast VAD RT on the right side. Cyst Aspiration on the Left side. Risk Values: Maeve 5 year model risk: 0.9%. NCI Lifetime model risk: 7.4%. Prior Study Comparison: 06/11/2021 Bilateral Screening Mammogram, [facility]. 10/20/2022 Bilateral MG 3D diag mammo w/cad [facility], [facility]. 11/03/2022 Right MG diagnostic mammo RT wo CAD, [facility]. Tissue Density: The breasts are heterogeneously dense, which may obscure small masses. Findings: Analyzed By CAD. Right breast: There is no suspicious group of microcalcifications or new suspicious mass. Left breast: There is no suspicious group of microcalcifications or new suspicious mass. Overall Assessment: Negative, BI-RAD 1 Management: Screening Mammogram of both breasts in [address] [facility] will attempt to contact patient to return for supplemental views and ultrasound if indicated. Patient should continue monthly self-breast exams. A clinical breast exam by your physician is recommended on an annual basis. This exam should not preclude additional follow-up of suspicious palpable abnormalities. Note on Maeve scores and lifetime risk: 1. A Maeve score greater than 3% is considered moderate risk. If this is the case, consider specialist referral to assess eligibility for a risk reducing agent. 2. If overall lifetime risk for the development of breast cancer is 20% or higher, the patient may qualify for future screening with alternating mammogram and breast MRI. Electronically signed and approved by: Paul Maxwell DO
== END | disposition home or self-care (01) ==
LOC: RADMAMWWP 08:41
PROVIDERS: ATTEND Surgery
DX: Z12.31 Encounter for screening mammogram for malignant neoplasm of breast (principal); Z78.0 Asymptomatic menopausal state
CPT/HCPCS: 77063; 77067

== ENCOUNTER → 2024-04-03 | Outpatient (CLI) | payer MEDICAID ==
--- NOTE | 2024-04-03 22:46 | MR ---
EXAMINATION TYPE: MR shoulder LT wo con DATE OF EXAM: 04/03/2024 COMPARISON: Outside left shoulder x-ray March 05, 2024 HISTORY: Left shoulder pain and impingement for 6 months. Difficulty raising arm overhead. TECHNIQUE: Multiplanar, multisequence imaging of the left shoulder is performed without contrast. FINDINGS: Rotator Cuff: Intact supraspinatus and infraspinatus tendons. Intact subscapularis tendon. Rotator cu ff muscle bulk is preserved. Acromioclavicular Joint: Mild narrowing without significant spurring. Moderate capsular hypertrophy. Distal acromion morphology unremarkable. Glenohumeral Joint: No significant effusion or spurring. Labrum: The labrum appears grossly intact given limitation of non-arthrogram study. Biceps Tendon: The long head of biceps is in normal location within bicipital groove. Bone marrow signal: Some increased signal at the acromioclavicular joint is present. Other: No additional significant abnormality is appreciated. IMPRESSION: No rotator cuff or labral tear is seen. AC joint arthropathy without definitive MRI evidence for impi ngement though this is a clinical diagnosis. [facility], , 04/03/2024 10:44 PM
== END | disposition home or self-care (01) ==
LOC: RADMRIMAIN 21:45
PROVIDERS: ATTEND Orthopaedic Surgery
DX: M19.012 Primary osteoarthritis, left shoulder (principal)

== ENCOUNTER → 2024-04-16 | Outpatient (CLI) | payer MEDICAID ==
[2024-04-16 18:12] LABS: Basophils # (A) 0.04 X 10*3/uL (0.00-0.10); Basophils % (A) 0.7 %; Eosinophils # (A) 0.06 X 10*3/uL (0.04-0.35); Eosinophils % (A) 1.1 %; HGB 13.7 g/dL (12.0-15.0); Lymphocytes # (A) 1.55 X 10*3/uL (0.90-5.00); Lymphocytes % (A) 28.3 %; MCH 31.8 pg (27.0-32.0); MCHC 33.4 g/dL (32.0-37.0); MCV 95.1 FL (80.0-97.0); Mean Platelet Volume 10.6 FL (9.5-12.2); Monocytes # (A) 0.37 X 10*3/uL (0.20-1.00); Monocytes % (A) 6.8 %; NRBC Per 100 WBC 0 X 10*3/uL (0.00-0.01); Neutrophils # (A) 3.44 X 10*3/uL (1.80-7.70); Neutrophils % (A) 62.9 %; Platelet Count 238 X 10*3/uL (140-440); RBC 4.31 X 10*6/uL (4.10-5.20); RDW 11.9 % (11.5-14.5); WBC 5.47 X 10*3/uL (4.50-10.00)
[2024-04-16 18:22] LABS: Blood Urea Nitrogen 24.4 mg/dL (9.0-27.0); Calcium 9.4 mg/dL (8.7-10.3); Carbon Dioxide 26.4 mmol/L (21.6-31.8); Chloride 105 mmol/L (96-109); Glucose 95 mg/dL (70-110); Potassium 4.2 mmol/L (3.5-5.5); Sodium 141 mmol/L (135-145)
== END | disposition home or self-care (01) ==
LOC: LABPAT 15:15
PROVIDERS: ATTEND Orthopaedic Surgery
DX: M75.42 Impingement syndrome of left shoulder (principal)
CPT/HCPCS: 80048; 85025

== ENCOUNTER 2024-04-27 06:38 | Day surgery (SDC) | payer MEDICAID ==
[2024-04-25 10:29] VITALS: BMI 19.8
--- NOTE | 2024-04-26 08:39 | P.HPOR ---
History of Present Illness H&P Date: 04/26/24 Chief Complaint: Left shoulder pain The patient is a 53-year-old right-hand dominant female who presents with left shoulder pain for the past 6 months. She is having pain with overhead activity and at night. She's tried therapy along with home exercise and medications with out much relief. She does daily pain that limits her. Review of Systems Per HPI Past Medical History Past Medical History: Asthma, Cancer, Osteoarthritis (OA) Additional Past Medical History / Comment(s): Hx cervical cancer at age 26. Has gallstone but causes no problems. History of Any Multi-Drug Resistant Organisms: None Reported Past Surgical History: Hysterectomy Past Anesthesia/Blood Transfusion Reactions: No Reported Reaction, Motion Sickness Smoking Status: Former smoker - Past Family History Mother Family Medical History: Cancer Additional Family Medical History / Comment(s): Lung cancer. Medications and Allergies Home Medications Medication Instructions Recorded Confirmed Type Montelukast Sodium [Singulair] 10 mg PO HS 11/12/21 04/25/24 History estradioL 0.5 mg PO DAILY 04/25/24 04/25/24 History Allergies Allergy/AdvReac Type Severity Reaction Status Date / Time Penicillins Allergy Unknown Verified 04/25/24 10:11 Childhood Physical Examination - Shoulder left Tenderness with palpation: anterior, bicipital groove Pain: with abduction, with forward flexion ROM: abduction: 160 degrees ROM: internal rotation: low thoracic ROM: external rotation: 70 degrees Crepitus with motion: Yes Strength: abduction: 5/5 Strength: forward flexion: 5/5 Tests: internal impingement tests: positive, external impingment tests: positive Results Patient is a well-developed well-nourished female approximately 5 foot 6, 127 pounds of mesomorphic Connell. HEENT exam is nonfocal, neck supple. She's tender about the left anterior subacromial space and acromioclavicular joint. She has mild subacromial crepitus. Impingement test, Neer test, and speed tests are positive. Cross body adduction elicits pain over the acromioclavicular joint. Her distal neurovascular exam appears intact in the left upper extremity. - Diagnostic results Shoulder MRI: image reviewed (MRI report of the left shoulder shows the rotator cuff appears intact. Acromioclavicular joint arthritis is noted.) Assessment and Plan Assessment: Left shoulder impingement Left acromioclavicular joint arthritis Plan: I talked to the patient at length regarding her condition along with treatment options. At this point she remains quite symptomatic despite conservative measures. After a through discussion she has proceed with surgery. We will plan to proceed with left shoulder arthroscopy with possible subacromial decompression, possible distal clavicular resection, and possible tear cuff debridement. We will likely perform that as an outpatient procedure. Risks and benefits were discussed at length in layman's terms.
[2024-04-27] MEDS ORDERED: HYDROmorphone 0.5 MG/0.5 ML SYRINGE IVP PRN (07:19)
[2024-04-27] MEDS: IV FLUID CONTINUATION 1,000 ML IV ONE (07:22)
[2024-04-27] MEDS: DEXAMETHASONE SOD PHOSPHATE 4 MG/ML 1 ML VIAL IV ONE (07:47)
[2024-04-27] MEDS: ONDANSETRON 4 MG/2 ML VIAL IVP ONE (07:47)
[2024-04-27] MEDS: LACTATED RINGERS 1,000 ML IV SCH (07:47)
[2024-04-27] MEDS: SCOPOLAMINE 1 MG/72 HR PATCH TRANSDERM ONE (07:48)
[2024-04-27] MEDS: MIDAZOLAM 2 MG/2 ML VIAL IV PRN (08:01)
[2024-04-27] MEDS: fentaNYL (PF) 50 MCG/ML 2 ML AMP IVP ONE (08:01)
[2024-04-27] MEDS ORDERED: fentaNYL (PF) 50 MCG/ML 2 ML AMP IVP PRN (08:13)
--- NOTE | 2024-04-27 08:13 | P.ANPRN ---
Procedure Note - Anesthesia - Nerve Block Performed Left Interscalene Single Time Out Performed: Yes Date of Procedure: 04/27/24 Procedure Start Time: 08:00 Procedure Stop Time: 08:09 Location of Patient: PreOp Indication: Acute Post-Operative Pain, Requested by Surgeon Sedation Type: Sedate with meaningful contact maintained Preparation: Sterile Prep Position: Supine Needle Types: Pajunk Needle Gauge: 21 Ultrasound used to visualize needle placement: Yes Ultrasound used to observe medication spread: Yes Injectate: 0.5% Ropivacaine (see comment for volume) (25 ml + 4 mg DD examethasone) Blood Aspirated: No Pain Paresthesia on Injection Noted: No Resistance on Injection: Normal Image Stored and Saved: Yes Events: Uneventful and Well Tolerated
[2024-04-27] MEDS ORDERED: NEOSTIGMINE 1 MG/ML 10 ML VIAL ONE (08:58)
[2024-04-27] MEDS ORDERED: GLYCOPYRROLATE 0.2 MG/ML 2 ML VIAL ONE (08:58)
[2024-04-27] MEDS ORDERED: fentaNYL (PF) 50 MCG/ML 2 ML AMP ONE (08:58)
[2024-04-27] MEDS ORDERED: PHENYLEPHRINE 10 MG/ML VIAL ONE (08:58)
[2024-04-27] MEDS ORDERED: ROCURONIUM 10 MG/ML (5 ML VIAL) IV ONE (08:58)
[2024-04-27] MEDS ORDERED: MIDAZOLAM 2 MG/2 ML VIAL ONE (08:58)
[2024-04-27] MEDS ORDERED: ROPIVACAINE 5 MG/ML 30 ML VIAL ONE (08:58)
[2024-04-27] MEDS ORDERED: PROPOFOL 10 MG/ML 20 ML VIAL IV ONE (08:58)
[2024-04-27] MEDS ORDERED: LIDOCAINE 1% INJ 10MG/ML (20 ML MDV) ONE (08:58)
[2024-04-27] MEDS ORDERED: DEXAMETHASONE SOD PHOSPHATE 4 MG/ML 1 ML VIAL ONE (08:58)
[2024-04-27] MEDS: EPINEPHrine (PF) 1 ML in SODIUM CHLORIDE 0.9% IRRIGATIO 3,000 ML IRRIGATION ONE (09:43)
[2024-04-27] MEDS: LACTATED RINGERS 1,000 ML IV ONE (09:56)
--- NOTE | 2024-04-27 10:04 | P.OP ---
Date of Procedure: 04/27/24 Preoperative Diagnosis: Left shoulder impingement/left acromioclavicular joint arthritis Postoperative Diagnosis: Same Procedure(s) Performed: Left shoulder arthroscopic subacromial decompression/distal clavicular resection Anesthesia: inna [facility] Surgeon: Yury Huber Labor/Excavator #1: Heath Tavera Estimated Blood Loss (ml): 10 Pathology: none sent Condition: stable Disposition: PACU Indications for Procedure: The patient is a 53-year-old female who presents with progressive/persistent left shoulder pain despite conservative measures. A discussion of the risks and benefits of operative intervention versus continued conservative measures was made with the patient. She opted to proceed with surgery. Operative risks include infection, neurovascular injury, development of blood clots, possible incomplete resolution of symptoms, possible worsening of symptoms and need for subsequent procedures was discussed. Informed consent was obtained. Operative Findings: As below Description of Procedure: The patient was brought to the operating room, and after induction of general anesthesia was placed in a beachchair position. A preoperative interscalene block was placed for postoperative analgesia. I examined the left shoulder. There was no gross block to passive motion or gross glenohumeral instability. The left upper extremity was prepped and draped in normal fashion. The bony outlines the acromion, distal clavicle, and coracoid process were outlined with a skin marker. The glenohumeral joint was inflated with 50 mL of saline utilizing a spinal needle from posterior approach. A posterior portal was made through a 5 mm skin incision 1 cm medial and inferior to the posterior lateral border time. A blunt trocar was used to easily into the joint. Diagnostic arthroscopy was performed. An anterior portal was made just lateral to the coracoid process entering the joint above the subscapularis tendon. The subscapularis tendon appeared to be intact. Anterior labrum was intact. The inferior recess was inspected. The posterior labrum was intact. The biceps and its anchor were inspected and felt to be intact. On inspection the rotator cuff, it was intact on the articular surface. The arthroscope was placed into the subacromial space. Significant subacromial bursitis was noted. A lateral portal was made 2 centimeters inferior to the anterior lateral border of the acromion. The soft tissue on the undersurface of the acromion was debrided with a motorized shaver and electrocautery clearly defining the anterior medial and lateral borders as well as the distal clavicle. An anterior inferior acromioplasty was performed with a motorized rose starting anterolateral, then extending this posteriorly, then extending this medially. I converted to a flat acromion and this was verified in the posterior and lateral viewing portals. The distal 8 mm of the clavicle was resected with a motorized bur. The remaining bursal tissue was resected with a shaver. The rotator cuff was inspected. It was felt to be intact on the bursal surface. The arthroscope was then removed. The portals were closed with simple 3-0 nylon sutures. A sterile dressing was applied in addition to a sling. The patient was then awoken from general anesthesia and transferred to recovery room in good condition. Blood loss was estimated at 10 mL. No complications were incurred. Sponge and needle counts were correct in the case. Heath SIMMONS assisted and the major components of the case to include arm positioning, arthroscopy, decompression, and closure.
[2024-04-27 10:12] VITALS: TEMP 97.6
[2024-04-27 11:26] VITALS: RESP 18
[2024-04-27 11:38] VITALS: BP 105/61; PULSE 73
== END 2024-04-27 12:21 | disposition home or self-care (01) ==
LOC: OR 06:38
PROVIDERS: ATTEND Orthopaedic Surgery
DX: M19.012 Primary osteoarthritis, left shoulder (principal); J45.909 Unspecified asthma, uncomplicated; Z85.41 Personal history of malignant neoplasm of cervix uteri; Z90.710 Acquired absence of both cervix and uterus; Z87.891 Personal history of nicotine dependence; Z80.1 Family history of malignant neoplasm of trachea, bronchus and lung; Z88.0 Allergy status to penicillin; Z79.899 Other long term (current) drug therapy
CPT/HCPCS: 64415; 29824; 29826; J2250; J1100; J2710; J0690; J2405; J0171; J2003; J3010; J2795; J2704; J2371; J1596